=== PATIENT | female | born 1980 | race Caucasian/White ===

== ENCOUNTER 2019-07-19 09:18 | Emergency (ER) | payer OTHER, SELFPAY ==
[2019-07-19 09:25] VITALS: BP 125/81; PULSE 92; RESP 16; TEMP 36.4; O2SAT 99
--- NOTE | 2019-07-19 09:40 | ED.GENADULT ---
HPI - General Adult General Chief complaint: Upper Respiratory Infection Stated complaint: sore throat Time Seen by Provider: 07/19/19 09:40 Source: patient and RN notes reviewed Mode of arrival: ambulatory Limitations: no limitations History of Present Illness HPI narrative: 39-year-old female presents with complaints of upper respiratory infection, cough, fever, and sore throat for the past 2 days. Tylenol, Ibuprofen, and cough suppressant with little relief. Eric worried about having the flu due to recent exposures per family members. High fevers, highest 101 Fahrenheit, orally without chills. No drooling, neck, or throat swelling. Pain is bilateral. Hurts to swallow. No voice change. Exacerbation factors consist of eating and drinking. Rhinorrhea and nasal congestion. No nausea, vomiting, or abdominal pain. Tolerating liquids well. Denies chills, dyspnea, difficulty swallowing, jaw pain, dental pain, facial pain, foreign body sensation, and rash. Remains active. Eric denies being , LMP 1 week ago. Some parts of this dictation were generated by voice recognition software and may contain typographical and/or grammatical inaccuracies. Related Data Allergies Allergy/AdvReac Type Severity Reaction Status Date / Time No Known Drug Allergies Allergy Unknown Verified 02/28/19 16:23 Review of Systems Review of Systems: Narrative: CONSTITUTIONAL: Complains of fever. Denies chills, sweats. EYES: Denies visual changes, redness, discharge. ENT: Denies otalgia. Complains of sore throat, rhinorrhea, congestion. CARDIOVASCULAR: Denies chest pain, palpitations, edema. RESPIRATORY: Denies dyspnea, wheezing. Complains of cough. GASTROINTESTINAL: Denies abdominal pain, nausea, vomiting, diarrhea. GENITOURINARY: Denies dysuria, hematuria, abnormal discharge. SKIN: Denies rash or itching. MUSCULOSKELETAL: Denies acute back pain, joint pain, or myalgia. NEUROLOGIC: Denies numbness or focal weakness. PSYCHIATRIC: Denies anxiety or depression. All systems reviewed & are unremarkable except as noted in HPI and below. [facility] Past Medical History Medical History (Updated 07/20/19 @ 00:00 by Alethea Ayers) No significant past medical history Surgical History Surgical History (Updated 07/19/19 @ 09:58 by ARIEL Agosto) History of ankle surgery Right History of cholecystectomy History of knee surgery Right Family History Family History (Updated 07/19/19 @ 09:58 by ARIEL Agosto) Grandparent Diabetes mellitus Social History Social History (Updated 07/19/19 @ 09:58 by ARIEL Agosto) Smoking status: Never smoker Second hand tobacco smoke exposure: No Alcohol intake: never Substance use: never Living arrangements: with family Occupation/Education: occupation Gender identity (if verbalized by the patient): Female Comments At time of signature, agree with nurse past medical, surgical, social, and family history. There is no relevant family history pertinent to the presenting complaint. Exam Narrative: Exam Narrative: GENERAL: This is a well-nourished, well-developed patient, in no apparent distress. Speaks in full sentences without deficits and ambulates with steady gait without dyspnea. HEAD: normocephalic, atraumatic. EYES: PERRL. Sclera clear/white. Vision is grossly intact. EARS: External ears normal, auditory canals clear and without drainage, TMs normal without perforation. Hearing grossly intact. NOSE: External nose normal with no obvious nasal discharge, nares with moderate redness and enlarge turbinates, clear rhinorrhea. Mouth: moist mucous membranes. THROAT: Mucous membranes moist, posterior pharynx with PND, moderate erythema, mild exudate to tonsil, +1 tonsils, no drainage, no concern for Peritonsillar abscess. No drooling, trismus, or neck swelling. NECK: Neck supple, non-tender without lymphadenopathy, masses or thyromegaly. CARDIOVASCULAR:
== END 2019-07-19 09:58 | disposition home or self-care (01) ==
PROVIDERS: Emergency Provider Nurse Practitioner Family
DX: J02.0 Streptococcal pharyngitis (principal)
CPT/HCPCS: 87804; 87880; 99213; G0463

== ENCOUNTER 2020-04-29 08:45 | Emergency (ER) | payer OTHER, SELFPAY ==
[2020-04-29 08:52] VITALS: BP 147/98; PULSE 100; RESP 20; TEMP 36.3; O2SAT 100
--- NOTE | 2020-04-29 09:00 | ED.URI ---
HPI - URI/Sore Throat General Chief Complaint: Upper Respiratory Infection Stated Complaint: sore throat Source: patient and RN notes reviewed Limitations: no limitations History of Present Illness HPI Narrative: The patient, a non-smoker/nondrinker who works at home, presents with sore throat. Patient states she has about 1/2-week history of mild sore throat, for which she saw some white spots. She complains of mild pain there is worse with eating. No fever, cough, S OB, loss of taste/smell, CP, V/D/dehydration, rash, sick contacts known, earache Related Data Allergies Allergy/AdvReac Type Severity Reaction Status Date / Time No Known Drug Allergies Allergy Unknown Unknown Verified 04/29/20 09:11 Review of Systems Review of Systems: Narrative: General/Constitutional: No weight loss,fever Eyes: N0: Redness,discharge Ears/Nose/Throat: No: Epistaxis,ear discharge Respiratory: Denies: Hemoptysis Gastrointestinal: No Vomiting, Bleeding-rectal Skin: No Lumps, eruption Neurologic: No Focal Weakness,Sz Hematologic: Denies: Petechiae/Purpura Psychiatric: No: Suicida ideationl All Other Systems: Reviewed and Negative [facility] Past Medical History Medical History (Updated 04/29/20 @ 08:59 by Wilfredo Pace MD) No significant past medical history Surgical History Surgical History (Updated 07/19/19 @ 09:58 by ARIEL Agosto) History of ankle surgery Right History of cholecystectomy History of knee surgery Right Family History Family History (Updated 07/19/19 @ 09:58 by ARIEL Agosto) Grandparent Diabetes mellitus Social History Social History (Updated 07/19/19 @ 09:58 by ARIEL Agosto) Smoking status: Never smoker Second hand tobacco smoke exposure: No Alcohol intake: never Substance use: never Gender identity (if verbalized by the patient): Female Comments At time of signature, agree with nursing past medical, surgical, social and family history. There is no relevant family history pertinent to the presenting complaint Exam Narrative: Exam Narrative: General Appearance: Well appearing, Conjunctiva clear Ears: Auditory canal normal, TM normal Nose: Rhinorrhea, Mucousal erythema Mouth/Throat: MM moist, Uvula midline, Pharyngeal erythema Supple Respiratory: No respiratory distress, airway patent Cardiovascular: No JVD Musculoskeletal: Non tender, Normal strength Skin: Warm, Dry Neurological: A&O x3,, Normal affect Course Vital Signs Vital signs: Vital Signs Temperature 97.3 F L 04/29/20 08:52 Pulse Rate 100 04/29/20 08:52 Respiratory Rate 04/29/20 08:52 Blood Pressure 147/98 H 04/29/20 08:52 Pulse Oximetry 100 04/29/20 08:52 Temperature 97.3 F L 04/29/20 08:52 Pulse Rate 100 04/29/20 08:52 Respiratory Rate 04/29/20 08:52 Blood Pressure 147/98 H 04/29/20 08:52 Pulse Oximetry 100 04/29/20 08:52 MDM - URI/Sore Throat Lab Data Labs: Strep Screen Presumptive Negative *(Reference Range: Negative)* Discharge Plan Discharge Clinical Impression: Pharyngitis Patient Disposition: Home, Self-Care Condition: Stable Instructions: Antibiotic Form, Pharyngitis (ED) Prescriptions: New azithromycin 250 mg tablet See Rx Instructions .ROUTE .COMPLEX Qty: 6 RF: 0 Lidocaine Viscous 2 % solution 5 ml MUCOUS MEM QID PRN (Reason: pain) Qty: 100 RF: 0 Follow-up/Referrals: UNKNOWN,DOCTOR [Primary Care Provider] -
== END 2020-04-29 09:21 | disposition home or self-care (01) ==
PROVIDERS: Emergency Provider Emergency Medicine
DX: J02.9 Acute pharyngitis, unspecified (principal)
CPT/HCPCS: 87081; 87880; 99213; G0463

== ENCOUNTER 2020-04-29 09:18 | Outpatient (NON) | payer OTHER, SELFPAY ==
[2020-04-29 20:00] LABS: SARS-CoV-2 RNA PCR Negative
== END 2020-04-29 09:19 ==
LOC: ANHCOVIDDT 09:19
PROVIDERS: Visit Provider Emergency Medicine
DX: Z20.828 Contact with and (suspected) exposure to other viral communicable diseases (principal); J02.9 Acute pharyngitis, unspecified
CPT/HCPCS: 87635; C9803; U0003